=== PATIENT | female | born 1980 | race Caucasian/White ===

== ENCOUNTER → 2017-08-13 | Outpatient (CLI) | payer BC ==
[2017-08-13 18:56] LABS: Basophils % (A) 1 %; CH 29.4; CHCM 32.1; Eosinophils # (A) 0.1 k/uL (0-0.7); Eosinophils % (A) 1 %; HCT 41.2 % (34.0-46.0); HDW 2.44; HGB 12.9 gm/dL (11.4-16.0); Luc # (Auto) 0.09; Luc % (Auto) 2; Lymphocytes # (A) 1.5 k/uL (1.0-4.8); Lymphocytes % (A) 26 %; MCH 28.9 pg (25.0-35.0); MCHC 31.4 g/dL (31.0-37.0); Mean Platelet Volume 8.3; Monocytes # (A) 0.3 k/uL (0-1.0); Monocytes % (A) 5 %; Neutrophils # (A) 3.8 k/uL (1.3-7.7); Neutrophils % (A) 66 %; RBC 4.48 m/uL (3.80-5.40); RDW 12.6 % (11.5-15.5); WBC 5.7 k/uL (3.8-10.6); WBC (Perox) 5.67
[2017-08-13 19:00] LABS: ALT 26 U/L (9-52); AST 20 U/L (14-36); Alkaline Phosphatase 61 U/L (38-126); Anion Gap 12 mmol/L; Blood Urea Nitrogen 13 mg/dL (7-17); Calcium 9.6 mg/dL (8.4-10.2); Carbon Dioxide 23 mmol/L (22-30); Chloride 103 mmol/L (98-107); Cholesterol 223 mg/dL (<200); Glucose 83 mg/dL (74-99); HDL Cholesterol 80 mg/dL (40-60); Non-African American GFR(MDRD) >60 (>60 ml/min/1.73 sqM); Potassium 4.5 mmol/L (3.5-5.1); Sodium 138 mmol/L (137-145); Total Bilirubin 1.3 mg/dL (0.2-1.3); Total Protein 7.8 g/dL (6.3-8.2)
== END | disposition home or self-care (01) ==
LOC: MMGSC 12:01
PROVIDERS: ATTEND Family Medicine
DX: Z00.00 Encounter for general adult medical examination without abnormal findings (principal)
CPT/HCPCS: 36415; 80053; 80061; 84439; 84443; 85025

== ENCOUNTER → 2018-01-09 | Day surgery (SDC) | payer BC ==
[2018-01-02 09:45] VITALS: BMI 21.7
[~2018-01-09] MED LIST: BUPIVACAINE (PF) 0.25% 30 ML VIAL SQ ONE; DEXAMETHASONE SOD PHOSPHATE 10 MG/ML 1 ML VIAL IV ONE; KETOROLAC 30 MG/ML 1 ML VIAL ONE; LACTATED RINGERS 1,000 ML IV ONE; LACTATED RINGERS 1,000 ML IV SCH; LIDOCAINE 1% 20 ML VIAL (10MG/ML) FOR IV START INTRADERMA ONE; LIDOCAINE 1% INJ 10MG/ML (20 ML MDV) ONE; MIDAZOLAM 2 MG/2 ML VIAL IV PRN; MIDAZOLAM 2 MG/2 ML VIAL ONE; ONDANSETRON 4 MG/2 ML VIAL IVP ONE; PROPOFOL 10 MG/ML 20 ML VIAL IV ONE; SCOPOLAMINE 1.5MG/72HR PATCH TRANSDERM ONE; ceFAZolin IN SWFI 2 GM/20 ML SYRINGE IVP ONE; fentaNYL (PF) 50 MCG/ML 2 ML AMP IV PRN; fentaNYL (PF) 50 MCG/ML 2 ML AMP ONE
--- NOTE | 2018-01-09 13:30 | P.DS ---
Providers Attending physician: Saul Langston Primary care physician: Balbina Culp Plan - Discharge Summary New Discharge Prescriptions: No Action No Known Home Medications [No Known Home Medications] Discharge Medication List No Known Home Medications [No Known Home Medications] 01/02/18 [History]
--- NOTE | 2018-01-09 13:30 | P.OP ---
Date of Procedure: 01/09/18 Preoperative Diagnosis: Umbilical hernia Postoperative Diagnosis: Umbilical hernia Procedure(s) Performed: Repair of umbilical hernia with Marlex mesh Anesthesia: KAVYA Surgeon: Saul Langston Estimated Blood Loss (ml): 2 Pathology: other (Umbilical hernia sac) Condition: stable Indications for Procedure: Symptomatic umbilical hernia Operative Findings: Umbilical hernia with a defect of about 1.5 cm Description of Procedure: Informed consent was obtained procedure having been explained to the patient including potential complication particular bleeding infection hematoma seroma recurrence pain surrounding injury etc. she understood and agree to proceed. After induction of general anesthesia with LMA the abdominal wall was prepped with Betadine and draped. Local anesthetic Marcaine 0.25% plain was infiltrated into the skin and subcutaneous tissues was below the umbilicus where a transverse incision was made and deepened through the minimal subcutaneous tissue. The hernia sac were dissected off the umbilicus and surrounding subcutaneous tissue. The sac was opened and contained minimal omentum was reduced immediately into the peritoneal cavity. The sac was excised at the fascial level. The defect measured just a little more than a centimeter in diameter. It was exposed circumferentially. The defect was then closed by approximation of the fascia with the interrupted 0 Prolene sutures. Forced by approximation of the Marlex mesh 1" x 2" to the fascia circumferentially with running 2-0 Prolene. The wound was irrigated. Hemostasis was good and the field was dry. Subcutaneous tissues were then approximated with interrupted 4-0 Vicryl after the suture line in the fascia was infiltrated with the Marcaine. The skin was closed with the interrupted 4- 0 Monocryl subcuticular suture and Steri-Strips. A pressure dressing was applied. All counts were correct. Blood loss was negligible. Patient remained stable and was transferred to the recovery room in good and stable condition. Dr. Balbina beverly and ZULEMA Plummer thinks Plan - Discharge Summary New Discharge Prescriptions: No Action No Known Home Medications [No Known Home Medications] Discharge Medication List No Known Home Medications [No Known Home Medications] 01/02/18 [History]
[2018-01-09 13:36] VITALS: TEMP 97.8
[2018-01-09 13:59] VITALS: RESP 16
[2018-01-09 14:06] VITALS: BP 113/54; PULSE 51
== END | disposition home or self-care (01) ==
LOC: OR 09:51
PROVIDERS: ATTEND Surgery
DX: K42.9 Umbilical hernia without obstruction or gangrene (principal)
CPT/HCPCS: 81025; 88302; 49585; C1781; J2250; J2001; J3010; J1885; J2704; J0690